=== PATIENT | female | born 1955 | race African-American/Black ===

== ENCOUNTER 2021-02-20 12:13 | Emergency (ER) | payer SELFPAY ==
[~2021-02-20] VITALS: Ht 162.6 cm; Wt 77.3 kg
[2021-02-20] MEDS ORDERED: DiphenhydrAMINE HCL 50 MG/ML VIAL IM STA (13:32)
[2021-02-20] MEDS ORDERED: KETOROLAC TROMETHAMINE 30 MG/ML VIAL IM ONE (13:45)
[2021-02-20] MEDS ORDERED: TraMADol HCL 50 MG TABLET PO ONE (15:00)
[2021-02-20 15:14] VITALS: BP 124/86
== END 2021-02-20 16:15 | disposition home or self-care (01) ==
LOC: EMS 12:18
DX: G89.29 Other chronic pain (principal); M79.604 Pain in right leg; I10 Essential (primary) hypertension; W05.0XXA Fall from non-moving wheelchair, initial encounter; Y93.89 Activity, other specified; Y92.89 Other specified places as the place of occurrence of the external cause; Y99.8 Other external cause status
CPT/HCPCS: 73590; 73610; 96372; 99284; J1200; J1885